=== PATIENT | female | born 1985 | race Asian ===

== ENCOUNTER 2021-10-22 09:52 | Inpatient (IN) ==
[2021-10-22] MEDS ORDERED: OXYTOCIN 30 UNITS/500 ML BAG IV PRN ×2 (10:20→17:23)
--- NOTE | 2021-10-22 10:20 | History & Physical Report ---
Date of Service October 22, 2021 Assessment & Plan (1) Encounter for induction of labor: Plan: 35 year old at 40 weeks and 2 days coming in for induction of labor. -Vital signs within normal limits. -Started LR and Pitocin. -Epidural if patient requests. -Continue to monitor patient vitals, heart rate and contractions. -Continue to monitor platelets. History of Present Illness Primary Care Provider: Queta Boothe MD 35 year old 39 weeks and 1 day confirmed via LMP. Here for vaginal delivery. Complications with this include low platelet count. Has been attending OB appointments regularly. Patient on doxylamine, B6 and B12 vitamins, vitamin, and Zofran. Contractions: [place] this morning but tend to be irregular, about 5 minutes apart at times. Fluid or blood: Denies. Movement: Present. Allergies Allergy/AdvReac Type Severity Reaction Status Date / Time ciprofloxacin [From Cipro] Allergy Verified 10/16/21 13:38 Home Medications Medication Instructions Recorded Confirmed Type mecobalamin (vitamin B12) PO .every other day 03/19/21 10/16/21 History ondansetron HCl 8 mg tablet 8 mg PO BID PRN 5 Days #20 tab 03/19/21 10/16/21 Rx doxylamine succinate [Unisom PO 06/12/21 10/16/21 History (doxylamine)] prenat.vits,joselyn,[id number] PO 06/12/21 10/16/21 History pyridoxine (vitamin B6) [Vitamin PO 06/12/21 10/16/21 History B-6] metronidazole 0.75 % vaginal gel 1 appful VAGINAL DAILY 14 Days #70 10/09/21 10/16/21 Rx (Metrogel Vaginal) g breast pump #1 ea 10/16/21 Rx Patient History Medical History Healthy adult Varicella vaccination Surgical History H/O: section [place] teeth extracted Family History Grandmother (Paternal) Stroke Grandmother (Maternal) Alzheimer disease Grandfather (Paternal) Parkinsons Other Dyslipidemia Hypertension Denies family history of Ovarian cancer Prostate cancer Breast cancer Colorectal cancer Social History (Updated 03/11/21 @ 10:05 by America Morales RN) Smoking Status: Never smoker Second Hand Exposure: No; Do You Dip or Chew Tobacco: No; Hx Alcohol Use: No Hx Substance Use: No Preferred Language: Welsh Communication Ability: Effective 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 This was a section due to the baby's position being face facing out. History of induced in 2014. Review of Systems Denies fever, chills, sweats Denies shortness of breath, difficulty breathing, chest pain, palpitations, chest pressure. Denies breast pain. Denies dysuria. Denies headache or changes in vision Physical Exam Physical Exam: General: Alert, oriented. No acute distress. Cardiac: Regular rate and rhythm, no murmurs/rubs/gallops. Respiratory: Clear to auscultation bilaterally a/p, no wheezes/rales/rhonchi. No increased work of breathing. Symmetrical chest rise. No respiratory distress. Pelvic: Dilation 4cm; Effacement 100; Station -[address] Barber Lower Extremities: No lower extremity edema or swelling. No deep calf pain. Zay's negative bilaterally Baseline: 130 Variability: moderate Accelerations: Present. Decelerations: Not present Results & Data ([facility]) Vital Signs (Past 12 Hours) Vital Signs Pulse BP 10/22/21 10:07 64 113/68 Laboratory Results - Blood type A+ - Antibody screen: Negative - Wbc: 9.68 - Plt: 107 - Rubella Immune - VDRL/RPR: Non-reactive - Gonorrhea: Negative - Chlamydia: Negative - HIV: Non-reactive - HbSAg: Negative - GBS: Negative - Glucose tolerance x 2: 119, 124 Supervising Physician Co-Signing Physician Notes Resident Physician Supervision Note: I interviewed and examined the patient. Discussed with Dr. Heard and agree with findings and plan as documented in the note. Any exceptions or clarifica tions are listed here: [None] Documented By: Mona Lundberg MD, FACOG Resident Activity Tracking Resident Involvement: Resident Care Provided Care Provided: OB Delivery
[2021-10-22] MEDS: LACTATED RINGER'S 1,000 ML IV PRN ×3 (10:59→14:01)
[2021-10-22 11:09] LABS: Mean Platelet Volume 14.1 fL (7.4-10.4); Platelet Count 107 K/uL (130-400)
[2021-10-22 11:10] LABS: Platelet Estimate Decreased (Normal); White Blood Count 9.68 K/uL (4.8-10.8)
[2021-10-22] MEDS ORDERED: fentaNYL citrate 100 MCG/2 ML VIAL ONE (11:12)
[2021-10-22] MEDS ORDERED: SODIUM CHLORIDE 0.9% INJ 10 ML VIAL ONE (11:12)
[2021-10-22] MEDS ORDERED: BUPIVACAINE 0.25% 30 ML VIAL ONE (11:12)
[2021-10-22] MEDS ORDERED: ePHEDrine sulfate 50 MG/ML AMP ONE (11:12)
[2021-10-22] MEDS ORDERED: fentaNYL 2MCG/ML ROPIVACAINE 1.25MG/ML 100 ML BAG EPI ONE (11:13)
[2021-10-22] MEDS ORDERED: NALOXONE HCL 0.4 MG/1 ML VIAL/CARP IV PRN (11:41)
[2021-10-22] MEDS ORDERED: ONDANSETRON INJ 2 MG/ML 2 ML VIAL IV PRN (11:41)
[2021-10-22] MEDS ORDERED: diphenhydrAMINE 50 MG/ML VIAL IV PRN (11:41)
[2021-10-22] MEDS ORDERED: NALOXONE HCL 1 MG in SODIUM CHLORIDE 0.9% 1000ML 1,000 ML IV PRN (11:41)
[2021-10-22] MEDS ORDERED: ePHEDrine sulfate 50 MG/ML AMP IV PRN (11:41)
[2021-10-22] MEDS ORDERED: fentaNYL 2MCG/ML ROPIVACAINE 1.25MG/ML 100 ML BAG EPI PRN (11:41)
[2021-10-22] MEDS ORDERED: NALBUPHINE HCL INJ 10 MG/ML AMP IV PRN (11:41)
--- NOTE | 2021-10-22 11:41 | Anesthesiology Consultation ---
Date of Service October 22, 2021 Assessment & Plan ASA ASA3 Proposed Anesthesia Anesthesia Type: Labor Epidural Risk / Benefits Reviewed With: PT / POA / Parent / Guardian, Accepts Plan and Informed Consent Obtained Additional Comments: with gestational thrombocytopenia History Height/Weight Height: 5 ft 3 in Weight: 66.224 kg Allergies Allergy/AdvReac Type Severity Reaction Status Date / Time ciprofloxacin [From Cipro] Allergy Verified 10/16/21 13:38 Medications Home Medications Medication Instructions Recorded Confirmed Last Taken mecobalamin (vitamin B12) PO .every other day 03/19/21 10/16/21 Unknown ondansetron HCl 8 mg tablet 8 mg PO BID PRN 5 Days #20 tab 03/19/21 10/16/21 Unknown doxylamine succinate [Unisom PO 06/12/21 10/16/21 Unknown (doxylamine)] prenat.vits,joselyn,[id number]-owfzw PO 06/12/21 10/16/21 Unknown pyridoxine (vitamin B6) [Vitamin PO 06/12/21 10/16/21 Unknown B-6] metronidazole 0.75 % vaginal gel 1 appful VAGINAL DAILY 14 Days #70 10/09/21 10/16/21 Unknown (Metrogel Vaginal) g breast pump #1 ea 10/16/21 Unknown Active Medications Generic Name Dose Route Start Last Admin Trade Name Freq PRN Reason Stop Dose Admin Lactated Ringer's 1,000 mls @ 125 mls/hr 10/22/21 10:20 10/22/21 11:59 Lr IV 10/24/21 10:19 999 mls/hr .Q8H PRN Administration L&D Protocol Protocol Past Medical History Medical History Healthy adult Varicella vaccination Exercise / Class Metabolic Activity II 4-5 Yardwork/Stairs/Walk up hill Past Family History Family History Grandmother (Paternal) Stroke Grandmother (Maternal) Alzheimer disease Grandfather (Paternal) Parkinsons Other Dyslipidemia Hypertension Denies family history of Ovarian cancer Prostate cancer Breast cancer Colorectal cancer Past Surgical History Surgical History H/O: section [place] teeth extracted Past Anesthesia History No Hx of Anesthesia Complications and No Family Hx of Anesthesia Complications History of PONV No Hx of PONV and No Hx of Motion Sickness Social History Smoking Status: Never smoker Do You Dip or Chew Tobacco: No Hx Alcohol Use: No Hx Substance Use: No substance use type: does not use Review of Systems denies fever/cough/ colds/ chest pain/ SOB/ DENA denies DENA Physical Exam Vital Signs Last Vital Signs Temp 36.5 C 10/22/21 10:28 Pulse 78 10/22/21 12:15 Resp 22 10/22/21 10:28 BP 104/58 L 10/22/21 12:15 Pulse Ox 100 10/22/21 12:13 ENMT Mouth: no TMJ abnormality and no dentition abnormality Thyromental Distance: > or= 3.5 Finger Breadths Mallampati Class: II Neck neck extension not limited Respiratory normal respiratory effort; no respiratory distress Auscultation: lungs clear to auscultation bilaterally Cardiovascular Rate/Rhythm: regular rate and regular rhythm Neurologic moves all extremities Psychiatric Orientation: alert and oriented x 3 Testing Laboratory Results 10/22/21 10:30 PT 9.4 Seconds (9.0-12.0) 10/22/21 11:39 INR 0.9 (0.9-1.1) 10/22/21 11:39 APTT 24.8 Seconds (21.0-31.0) 10/22/21 11:39 Blood Type A Positive 10/22/21 10:30 Antibody Screen NEGATIVE 10/22/21 10:30
[2021-10-22 12:03] LABS: INR 0.9 (0.9-1.1); Partial Thromboplastin Ratio 0.9; Partial Thromboplastin Time 24.8 Seconds (21.0-31.0); Prothrombin Time 9.4 Seconds (9.0-12.0)
[2021-10-22 12:42] LABS: Hematocrit (blood only) 34.5 % (37-47); Hemoglobin 11.4 g/dL (12.0-16.0); Red Blood Count 3.76 M/uL (4.2-5.4)
[2021-10-22 12:43] LABS: Mean Corpuscular Hemoglobin 30.3 pg (25-34); Mean Corpuscular Volume 91.8 fL (80-100); RDW Coefficient of Variation 13.4 % (11.5-14.5); RDW Standard Deviation 44.5 fL (36.4-46.3)
[2021-10-22] MEDS ORDERED: SUPERCREAM 0.870% 15 GM JAR EXT PRN (17:23)
[2021-10-22] MEDS ORDERED: ACETAMINOPHEN 325 MG TAB PO PRN (17:23)
[2021-10-22] MEDS ORDERED: oxyCODONE/ACETAMINOPHEN 5mg/325mg TAB PO PRN (17:23)
[2021-10-22] MEDS ORDERED: bisacodyL 10 MG SUPP PR PRN (17:23)
[2021-10-22] MEDS ORDERED: HYDROCORTISONE ACETATE 25 MG SUPP PR PRN (17:23)
[2021-10-22] MEDS ORDERED: DIPHTHERIA/TETANUS/PERTUSSIS 0.5 ML SYR/VIAL IM ONE (17:23)
[2021-10-22] MEDS ORDERED: BENZOCAINE 20% AER SPR 82.5 GM CAN EXT PRN (17:23)
--- NOTE | 2021-10-22 17:29 | Delivery Summary ---
Vaginal Delivery Summary Date of Service October 22, 2021 Vaginal Delivery Summary Patient is a 35-year-old 3 para 1-0-1-1 white female who presents at 39 weeks in active labor. Her last delivery was by section because of the face presentation and she desired a trial of labor. She ruptured membranes spontaneously for clear fluid and she received effective epidural analgesia. She progressed to full dilation and pushed effectively over intact perineum for delivery of a viable female infant. The was in the occiput anterior presentation rest of the infant delivered easily. The was then placed on the mother's abdomen for further attention and drying. She was vigorous and moving all 4 limbs. After 1 minute the cord was clamped and cut. The placenta was expressed intact with a three-vessel cord. Bilateral labial abrasions were not bleeding and therefore not repaired. bleeding was controlled with fundal massage and dilute Pitocin. Estimated blood loss was 300 cc. Mother and infant were doing well after delivery. MNP Vaginal Delivery Charge Delivery Type Details:
[2021-10-22] MEDS: IBUPROFEN 600 MG TAB PO PRN (18:48)
[2021-10-22 20:18] LABS: Partial Thromboplastin Ratio 0.9; Partial Thromboplastin Time 24.5 Seconds (21.0-31.0); Prothrombin Time 9.7 Seconds (9.0-12.0)
[2021-10-22 20:24] LABS: Platelet Count 97 K/uL (130-400); Platelet Estimate Decreased (Normal)
[2021-10-22] MEDS ORDERED: CALCIUM CARBONATE 500 MG CHEWABLE TAB PO PRN (20:45)
[2021-10-22] MEDS: DOCUSATE SODIUM 100 MG CAP PO SCH (21:42)
[2021-10-23] MEDS: IBUPROFEN 600 MG TAB PO PRN ×2 (04:32→12:59)
--- NOTE | 2021-10-23 06:15 | Obstetrical Progress Note ---
Date of Service <Zheng Heard DO - Last Filed: 10/23/21 08:10> October 23, 2021 Assessment & Plan <Zheng Heard DO - Last Filed: 10/23/21 08:10> (1) Encounter for care and examination after delivery: 35 yo post day 1 from vaginal delivery, doing well. -Continue routine post care. -vital signs reviewed and WNL. (Tmax 37.2) -Blood type A+, GBS negative, Rubella Immune -Encourage ambulation, monitor and control pain with Motrin, tylenol PRN, resume regular diet, monitor lochia. -encourage breast feeding. Breast pump already has. -hemoglobin 9.9. <Mona Lundberg MD, FACOG - Last Filed: 10/23/21 09:58> (1) Encounter for care and examination after delivery: Subjective <Zheng Heard DO - Last Filed: 10/23/21 08:10> Ambulation: ambulating normally Voiding: no voiding problems Passing Gas:: Yes Diet Tolerance:: regular diet Lochia:: Small Feeding Type:: breast feeding Current Pain Level(1-10): 0 Review of Systems Denies fever, chills, sweats Denies shortness of breath, difficulty breathing, chest pain, palpitations, chest pressure. Denies breast pain. Denies dysuria. Denies headache or changes in vision Physical Exam <Zheng Heard DO - Last Filed: 10/23/21 08:10> General: Alert, oriented. No acute distress. Cardiac: Regular rate and rhythm, no murmurs/rubs/gallops. Respiratory: Clear to auscultation bilaterally a/p, no wheezes/rales/rhonchi. No increased work of breathing. Symmetrical chest rise. No respiratory distress. Abdomen: Soft, nontender, nondistended. Bowel sounds present. Uterus: Uterine fundus firm, palpable 3 cm below umbilicus. Lower Extremities: No lower extremity edema or swelling. No deep calf pain. Zay's negative bilaterally Results & Data ([facility]) <Zheng Heard DO - Last Filed: 10/23/21 08:10> Vital Signs (Past 12 Hours) Vital Signs Temp Pulse Pulse Resp BP BP 10/23/21 04:35 36.9 C 63 18 94/59 L 10/22/21 23:20 36.8 C 76 18 96/59 L 10/22/21 21:30 37.2 C 69 18 97/61 L 10/22/21 20:02 36.7 C 71 91/54 L 10/22/21 20:00 18 10/22/21 19:47 82 95/51 L 10/22/21 19:20 18 10/22/21 19:17 81 94/53 L 10/22/21 19:02 74 101/59 L 10/22/21 18:47 66 99/60 L 10/22/21 18:38 65 98/55 L 10/22/21 18:23 69 97/56 L <Mona Lundberg MD, FACOG - Last Filed: 10/23/21 09:58> Co-Signing Physician Notes Resident Physician Supervision Note: I was present with Dr. Heard during the history and exam. I discussed the case with the resident and agree with the findings and plan as documented in the note. Any exceptions or clarifications are listed here: [None] Documented By: Mona Lundberg MD, FACOG Resident Activity Tracking <Zheng Heard DO - Last Filed: 10/23/21 08:10> Resident Involvement: Resident Care Provided Care Provided: OB Delivery
[2021-10-23 07:10] LABS: Mean Corpuscular Hgb Conc 32.9 g/dL (32-36)
[2021-10-23 07:21] LABS: Hematocrit (blood only) 30.1 % (37-47); Hemoglobin 9.9 g/dL (12.0-16.0); Mean Corpuscular Hemoglobin 30.2 pg (25-34); Mean Corpuscular Volume 91.8 fL (80-100); RDW Coefficient of Variation 13.4 % (11.5-14.5); RDW Standard Deviation 44.8 fL (36.4-46.3); Red Blood Count 3.28 M/uL (4.2-5.4)
[2021-10-23 08:00] LABS: Platelet Count 101 K/uL (130-400)
[2021-10-23] MEDS ORDERED: PRENATAL VITAMIN 1 TAB PO SCH (08:00)
[2021-10-23 08:01] LABS: Platelet Estimate Decreased (Normal)
[2021-10-23] MEDS: DOCUSATE SODIUM 100 MG CAP PO SCH ×2 (08:10→20:04)
[2021-10-23 13:20] VITALS: TEMP 98.1
[2021-10-23 16:59] VITALS: BP 94/60; PULSE 70; O2SAT 99
[2021-10-23] MEDS ORDERED: bisacodyL 5 MG TABEC PO SCH (20:00)
== END 2021-10-23 20:20 | disposition home or self-care (01) | DRG 807 ==
LOC: OPB 09:52 → 4S1 09:54 → 4S2 21:13
DX: Z3A.40 40 weeks gestation of pregnancy; O34.219 Maternal care for unspecified type scar from previous cesarean delivery; Z88.1 Allergy status to other antibiotic agents; Z37.0 Single live birth; O48.0 Post-term pregnancy